=== PATIENT | female | born 1965 | race Two or more races ===

== ENCOUNTER 2024-09-20 11:08 | Emergency (ER) | payer BC ==
[~2024-09-20] VITALS: Ht 157.5 cm; Wt 68.2 kg
[2024-09-20] MEDS: morphine 4 MG/ML inj SYRINge IV ONE ×2 (11:34→14:34)
[2024-09-20] MEDS: ondansetron/PF 4mg/2ml inj IV ONE (12:06)
[2024-09-20] MEDS ORDERED: HYDR-3973 PO (14:55)
[2024-09-20 15:16] VITALS: BP 138/78; PULSE 73; RESP 18; O2SAT 99
== END 2024-09-20 15:18 | disposition home or self-care (01) ==
LOC: ER 11:08
DX: M53.3 Sacrococcygeal disorders, not elsewhere classified (principal); Z85.038 Personal history of other malignant neoplasm of large intestine; Z90.49 Acquired absence of other specified parts of digestive tract; Z98.890 Other specified postprocedural states
CPT/HCPCS: 72148; 96374; 96376; 99285; J2270; A6590